=== PATIENT | female | born 1965 | race Caucasian/White ===

== ENCOUNTER → 2018-01-31 | Outpatient (CLI) | payer BC ==
[2018-01-31 14:15] LABS: Basophils % (A) 0 %; Eosinophils # (A) 0.1 k/uL (0-0.7); Eosinophils % (A) 1 %; HCT 41.5 % (34.0-46.0); HGB 13.9 gm/dL (11.4-16.0); Lymphocytes # (A) 1.5 k/uL (1.0-4.8); Lymphocytes % (A) 25 %; MCH 31.4 pg (25.0-35.0); MCHC 33.5 g/dL (31.0-37.0); MCV 93.5 fL (80.0-100.0); Monocytes # (A) 0.3 k/uL (0-1.0); Monocytes % (A) 4 %; Neutrophils # (A) 4.1 k/uL (1.3-7.7); Neutrophils % (A) 68 %; Platelet Count 155 k/uL (150-450); RBC 4.43 m/uL (3.80-5.40); RDW 12.8 % (11.5-15.5)
[2018-01-31 16:14] LABS: Erythrocyte Sedimentation Rate 13 mm/hr (0-20)
[2018-01-31 18:57] LABS: ALT 65 U/L (8-44); AST 46 U/L (13-35); Albumin/Globulin Ratio 1.64 (1.20-2.10); Alkaline Phosphatase 120 U/L (41-126); Calcium 9.2 mg/dL (8.7-10.3); Chloride 106 mmol/L (96-109); Cholesterol 135 mg/dL (0-200); Creatine Kinase 79 U/L (26-186); Globulin 2.5 g/dL (2.1-3.7); Glucose 73 mg/dL (70-110); Potassium 4.2 mmol/L (3.5-5.5); Sodium 139 mmol/L (135-145); Total Bilirubin 0.5 mg/dL (0.2-1.2); Total Protein 6.6 g/dL (6.2-8.2); Triglycerides <50.0 mg/dL (0.0-149.0); VLDL Calculation 9.98 mg/dL (5.00-40.00)
== END | disposition home or self-care (01) ==
LOC: LABWHC1 13:12
PROVIDERS: ATTEND Registered Nurse
DX: R51 Headache (principal); R53.83 Other fatigue; M25.50 Pain in unspecified joint
CPT/HCPCS: 36415; 80053; 80061; 82175; 82306; 82550; 82570; 83655; 83825; 84443; 85025; 85652

== ENCOUNTER → 2019-01-17 | Outpatient (CLI) | payer BC | END | disposition home or self-care (01) | LOC: NEUROMAIN 01-04 07:05 | PROVIDERS: ATTEND Otolaryngology | DX: R42 Dizziness and giddiness (principal) | CPT/HCPCS: 92537; 92540 ==

== ENCOUNTER → 2019-01-24 | Outpatient (CLI) | payer BC ==
--- NOTE | 2019-01-26 12:22 | MR ---
EXAMINATION TYPE: MR iac wo/w con DATE OF EXAM: 01/24/2019 COMPARISON: None HISTORY: Dizziness and giddiness TECHNIQUE: Multiplanar, multisequence images of the IACs is performed without and with IV contrast, utilizing 7 mL intravenous Gadavist . FINDINGS: Diffusion weighted images demonstrate no evidence of a recent infarct or other diffusion ab normality. The ventricular system and cisternal spaces are normal in size and appearance. The brain volume is age appropriate. Midline structures demonstrate normal morphology. The craniocervical junction appears within normal limits. Post contrast images demonstrate no abnormal enhancement. The dural venous sinuses appear pa tent. Nasal septal deviation is seen with very mild changes of chronic ethmoidal sinusitis which are orbita l structures are normal. There is no evidence of cerebellopontine angle mass or acoustic schwannoma. Mastoid air cells have a normal appearance. White matter: There are approximately 7 or 8 areas of abnormal signal seen within the white matter scattered bilate rally. Within the left frontal white matter there is a focal area of abnormal signal measuring 9 mm m ay be on the basis of previous infarction. No enhancement. No lesions perpendicular to ventricular sy stem. No callosal lesions. Area of abnormal signal involving the basal ganglia likely the basis of remote lacunar infarction. IMPRESSION: 1. No evidence of cerebellopontine angle mass or acoustic schwannoma. 2. Nonspecific white matter changes with the largest area seen in the left frontal white matter measu ring 9 mm. Differential diagnosis includes remote microvascular ischemia. Demyelinating process not e ntirely excluded, correlate clinically. 3. Very mild chronic ethmoidal sinusitis. Nasal septal deviation also incidentally noted.
== END | disposition home or self-care (01) ==
LOC: RADMRIMAIN 12:32
PROVIDERS: ATTEND Otolaryngology
DX: J32.2 Chronic ethmoidal sinusitis (principal); H91.93 Unspecified hearing loss, bilateral; R90.89 Other abnormal findings on diagnostic imaging of central nervous system
CPT/HCPCS: 70553; A9585